=== PATIENT | female | born 1955 | race Caucasian/White ===

== ENCOUNTER 2016-11-30 18:57 | Emergency (ER) | payer MEDICAID ==
[2016-11-30 20:03] VITALS: BP 149/85
--- NOTE | 2016-11-30 20:47 | EDM.PDOC ---
ED HPI GENERAL MEDICAL PROBLEM - General Chief Complaint: Respiratory Problem Stated Complaint: SORE THROAT Time Seen by Provider: 11/30/16 20:37 Source of Information: Reports: Patient History Limitations: Reports: No Limitations - History of Present Illness INITIAL COMMENTS - FREE TEXT/NARRATIVE: History of present illness: [61-year-old female presenting with a productive cough for last 3-4 days. She's had no fevers or shortness of breath. She does have a history of asthma or COPD and is on an inhaler for that. She's requesting a refill of her albuterol and a Z-Sebastian. She is visiting from [place]. She states that's what she usually gets when she has this problem. She is a smoker.] Review of systems: As per history of present illness and below otherwise all systems reviewed and negative. Past medical history: As per history of present illness and as reviewed below otherwise noncontributory. Surgical history: As per history of present illness and as reviewed below otherwise noncontributory. Social history: No reported history of drug or alcohol abuse. Family history: As per history of present illness and as reviewed below otherwise noncontributory. Physical exam: HEENT: Atraumatic, normocephalic, Lungs: Clear to auscultation, but somewhat diminished Heart: S1S2, regular Extremities: Atraumatic, negative for cords or calf pain. Neurovascular unremarkable. Neuro: Awake, alert, oriented. Exam nonfocal. Diagnostics: [] Therapeutics: [] Impression: [Exacerbation of chronic bronchitis] Plan: [Z-Sebastian is provided along with an albuterol inhaler. She will follow-up when necessary] Definitive disposition and diagnosis as appropriate pending reevaluation and review of above. - Related Data Allergies Allergy/AdvReac Type Severity Reaction Status Date / Time Penicillins Allergy Hives Verified 11/30/16 20:02 Home Meds: Home Meds NK [No Known Home Meds] 01/27/15 [History] Past Medical History - Past Health History Medical/Surgical History: Denies Medical/Surgical History Social & Family History - Tobacco Use Smoking Status *Q: Unknown Ever Smoked Years of Tobacco use: 20 Packs/Tins Daily: 0.5 - Recreational Drug Use Recreational Drug Use: No ED ROS GENERAL - Review of Systems Review Of Systems: ROS reveals no pertinent complaints other than HPI. ED EXAM, GENERAL - Physical Exam Exam: See Below Course - Vital Signs Last Recorded V/S: Last Vital Signs Temp 37.0 C 11/30/16 20:00 Pulse 95 11/30/16 20:00 Resp 15 11/30/16 20:00 BP 149/85 H 11/30/16 20:00 Pulse Ox 93 L 11/30/16 20:00 Departure - Departure Time of Disposition: 20:46 Disposition: Home, Self-Care 01 Condition: Good Clinical Impression: Acute exacerbation of chronic bronchitis - Discharge Information Referrals: Anni Yañez MD [Primary Care Provider] - Additional Instructions: If you're not improving over the next 3-4 days please follow-up with your primary care doctor or clinic or urgent care center or ER.
== END 2016-11-30 21:10 | disposition home or self-care (01) ==
LOC: JP.ED 18:57
DX: J42 Unspecified chronic bronchitis (principal); Z88.0 Allergy status to penicillin
CPT/HCPCS: 99284-25

== ENCOUNTER 2017-12-26 21:23 | Emergency (ER) | payer MEDICAID ==
[2017-12-26 22:35] VITALS: BP 156/90
--- NOTE | 2017-12-26 22:44 | EDM.PDOC ---
ED HPI GENERAL MEDICAL PROBLEM - General Chief Complaint: ENT Problem Stated Complaint: SINUS/EARACHE Time Seen by Provider: 12/26/17 22:25 Source of Information: Reports: Patient History Limitations: Reports: No Limitations - History of Present Illness INITIAL COMMENTS - FREE TEXT/NARRATIVE: 62-year-old female that said increasing nasal congestion, sinus pressure and cough for the past several days. She typically gets sinusitis 2-3 times a year that responds well to Zithromax. No fevers, she does have some nasal drainage. Cough is generally nonproductive. Onset: Gradual (Over the past several days) Associated Symptoms: Reports: Cough, Shortness of Breath. 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 Denies: Fever, Chills HEENT: Reports: Sinus Problem (Pressure and drainage) Respiratory: Reports: Cough Cardiovascular: Denies: Chest Pain Skin: Reports: No Symptoms Neurological: Denies: Headache ED EXAM, ENT - Physical Exam Exam: See Below Exam Limited By: No Limitations General Appearance: Alert, No Apparent Distress Head: Sinus Tenderness (She does have percussion tenderness over both maxillary sinuses) Respiratory/Chest: No Respiratory Distress, Lungs Clear Neurological: Alert, Oriented Psychiatric: Normal Affect, Normal Mood Skin: Warm, Dry Course - Vital Signs Last Recorded V/S: Last Vital Signs Temp 96.6 F 12/26/17 22:22 Pulse 83 12/26/17 22:22 Resp 16 12/26/17 22:22 BP 156/90 H 12/26/17 22:22 Pulse Ox 98 12/26/17 22:22 - Re-Assessments/Exams Free Text/Narrative Re-Assessment/Exam: 12/26/17 22:44 Patient is convinced that Zithromax helps her with the symptoms, it has worked in the past so she will be provided with a 5 day course. She'll recheck in 4-5 days if not improving satisfactorily or sooner if worsening. Departure - Departure Time of Disposition: 22:56 Disposition: Home, Self-Care 01 Condition: Good Clinical Impression: Sinusitis, acute Qualifiers: Sinusitis location: maxillary Recurrence: recurrent Qualified Code(s): J01.01 - Acute recurrent maxillary sinusitis - Discharge Information Instructions: Sinusitis, Adult, [id number] Referrals: PCP,None [Primary Care Provider] - Forms: ED Department Discharge Care Plan Goals: Take antibiotic as prescribed, return in 4-5 days if not improving satisfactorily. Return sooner if worsening despite treatment such as fever or increased illness.
== END 2017-12-26 22:56 | disposition home or self-care (01) ==
LOC: JP.ED 21:23
DX: J01.01 Acute recurrent maxillary sinusitis (principal); F17.210 Nicotine dependence, cigarettes, uncomplicated; Z88.0 Allergy status to penicillin
CPT/HCPCS: 99283

== ENCOUNTER 2018-12-09 17:25 | Emergency (ER) | payer MEDICAID ==
[2018-12-09 18:46] VITALS: BP 161/77
--- NOTE | 2018-12-09 18:58 | EDM.PDOC ---
ED HPI GENERAL MEDICAL PROBLEM - General Chief Complaint: Respiratory Problem Stated Complaint: BRONCHITITS Time Seen by Provider: 12/09/18 18:45 Source of Information: Reports: Patient, Old Records, RN History Limitations: Reports: Other (incomplete medical records) - History of Present Illness INITIAL COMMENTS - FREE TEXT/NARRATIVE: 63 yo light female smoker, <1/2 ppd, presents with a cough that started as a cold. No fever or SOB. Inadequate relief with albuterol. Clear nasal discharge. Says she gets this a couple times a year and usually is given a Z-pack. Lives here half the year. Onset: Gradual Duration: Day(s):, Getting Worse Location: Reports: Face (nose), Chest Quality: Reports: Other (no pain) Severity: Mild Improves with: Reports: Medication Worsens with: Reports: Other (smoking, "colds") Context: Reports: Other (See HPI) Associated Symptoms: Reports: Cough. 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 Denies: Ear Pain, Sinus Problem, Throat Pain Respiratory: Reports: Cough. Denies: Shortness of Breath, Wheezing, Pleuritic Chest Pain, Sputum, Hemoptysis Cardiovascular: Reports: No Symptoms GI/Abdominal: Reports: No Symptoms : Reports: No Symptoms Musculoskeletal: Reports: No Symptoms Skin: Reports: No Symptoms Neurological: Reports: No Symptoms ED EXAM, GENERAL - Physical Exam Exam: See Below Exam Limited By: No Limitations General Appearance: Alert, WD/WN, No Apparent Distress Eye Exam: Bilateral Eye: Normal Inspection Ears: Normal External Exam, Normal Canal, Hearing Grossly Normal, Normal TMs Ear Exam: Bilateral Ear: Auricle Normal, Canal Normal, TM normal Nose: Normal Inspection, No Blood, Clear Rhinorrhea Throat/Mouth: Normal Inspection, Normal Lips, Normal Oropharynx, Normal Voice, No Airway Compromise Head: Atraumatic, Normocephalic Neck: Normal Inspection Respiratory/Chest: No Respiratory Distress, Lungs Clear, Normal Breath Sounds, No Accessory Muscle Use. No: Wheezing Cardiovascular: Regular Rate, Rhythm, No Edema Extremities: Normal Inspection Neurological: Alert, Oriented, CN II-XII Intact, Normal Cognition, No Motor/ Sensory Deficits Psychiatric: Normal Affect, Normal Mood Skin Exam: Warm, Dry, Intact, Normal Color, No Rash Course - Vital Signs Last Recorded V/S: Last Vital Signs Temp 35.8 C 12/09/18 18:40 Pulse 82 12/09/18 18:45 Resp 20 12/09/18 18:40 BP 161/77 H 12/09/18 18:45 Pulse Ox 95 12/09/18 18:40 Departure - Departure Time of Disposition: 19:00 Disposition: Home, Self-Care 01 Condition: Good Clinical Impression: Viral URI with cough, Bronchospasm - Discharge Information *PRESCRIPTION DRUG MONITORING PROGRAM REVIEWED*: No *COPY OF PRESCRIPTION DRUG MONITORING REPORT IN PATIENT STEVEN: No Instructions: Viral Respiratory Infection, [id number], Steps to Quit Smoking , [id number], Bronchospasm, Adult Referrals: Anni Yañez MD [Primary Care Provider] - Additional Instructions: No smoking. Use Delsym for cough symptom. Continue albuterol as needed. Take prednisone twice daily with food until gone. Follow up in the clinic later in the week.
== END 2018-12-09 19:08 | disposition home or self-care (01) ==
LOC: JP.ED 17:25
DX: J98.01 Acute bronchospasm (principal); J06.9 Acute upper respiratory infection, unspecified; F17.210 Nicotine dependence, cigarettes, uncomplicated; Z88.0 Allergy status to penicillin
CPT/HCPCS: 99283

== ENCOUNTER 2022-03-25 22:04 | Emergency (ER) | payer MEDICAID ==
[2022-03-25 22:17] VITALS: BP 182/87; PULSE 96
== END 2022-03-25 22:38 | disposition home or self-care (01) ==
LOC: JP.ED 22:04
DX: J40 Bronchitis, not specified as acute or chronic (principal); F17.210 Nicotine dependence, cigarettes, uncomplicated; Z88.0 Allergy status to penicillin; Z90.49 Acquired absence of other specified parts of digestive tract
CPT/HCPCS: 99282

== ENCOUNTER 2022-12-10 20:24 | Emergency (ER) | payer MEDICAID ==
[2022-12-10 21:18] VITALS: BP 179/71; PULSE 83
== END 2022-12-10 22:13 | disposition home or self-care (01) ==
LOC: JP.ED 20:24
DX: J40 Bronchitis, not specified as acute or chronic (principal); Z87.891 Personal history of nicotine dependence; Z88.0 Allergy status to penicillin
CPT/HCPCS: 99284

== ENCOUNTER 2023-12-26 22:18 | Emergency (ER) | payer MEDICAID, MEDICARE ==
[2023-12-26 23:00] VITALS: BP 190/85; PULSE 84
== END 2023-12-27 00:09 | disposition home or self-care (01) ==
LOC: JP.ED 22:18
DX: S62.611A Displaced fracture of proximal phalanx of left index finger, initial encounter for closed fracture (principal); Z86.16 Personal history of COVID-19; Z90.49 Acquired absence of other specified parts of digestive tract; Z87.891 Personal history of nicotine dependence; Z79.899 Other long term (current) drug therapy; Z88.0 Allergy status to penicillin; W22.8XXA Striking against or struck by other objects, initial encounter
CPT/HCPCS: 29125; 73130-26-LT; 73130-LT; 99283-25; 99284